=== PATIENT | female | born 1955 | race Caucasian/White ===

== ENCOUNTER 2018-01-08 09:33 | Emergency (ER) | payer OTHER ==
[~2018-01-08] VITALS: Ht 152.4 cm; Wt 69.2 kg
[2018-01-08 09:37] VITALS: BP 228/92
--- NOTE | 2018-01-08 09:42 | NUR ---
PT AMBULATED TO ER BED 11
--- NOTE | 2018-01-08 09:51 | NUR ---
DR CONTE AT BEDSIDE FOR PT EVALUATION
[2018-01-08] MEDS ORDERED: cloNIDine 0.1 MG TAB PO ONE (09:55)
--- NOTE | 2018-01-08 10:45 | NUR ---
encouraged pt to visit pmd for physical and further eval of b/p and blood sugar control. Patient discharged with v/s stable. Written and verbal after care instructions given and explained. Patient verbalized understanding. Ambulatory with steady gait. All questions addressed prior to discharge. Advised to follow up with PMD.
[2018-01-08 10:47] VITALS: BP 155/57
== END 2018-01-08 10:45 | disposition home or self-care (01) ==
LOC: MED 09:33
DX: I10 Essential (primary) hypertension (principal); E11.9 Type 2 diabetes mellitus without complications
CPT/HCPCS: 81002; 82948; 99283